=== PATIENT | female | born 1985 | race Asian ===

== ENCOUNTER 2018-05-04 16:58 | Emergency (ER) | payer OTHER, SELFPAY ==
[2018-05-04 16:59] VITALS: BP 126/76; PULSE 107; RESP 18; TEMP 37.6; O2SAT 98; BMI 19.0
--- NOTE | 2018-05-04 18:35 | ED.RN ---
NO OLD EKGS IN MUSE
[2018-05-04 18:49] VITALS: PULSE 110; RESP 18; O2SAT 99
--- NOTE | 2018-05-04 18:52 | ED.VISSUMM ---
- ER Visit Summary Date of Service: 05/04/18 Chief Complaint: Chest pain History of Present Illness: The patient is a 32 F with no primary care physician. She reports she has chest pain began approximately 1 week ago. It is an intermittent pain that lasts a few minutes of time. She describes as cramping. Is 3 out of 10 at worst and she is pain-free currently. It is worsened by movement of her torso. There is no change with exertion or breathing. It is relieved by relaxing. She denies any associated nausea, vomiting, diaphoresis, or shortness of breath. No personal family history of DVT. She did fly to [employer] in January. She denies any calf pain or ankle swelling. Physical Examination: Vitals: Stable. Afebrile. General: Well-nourished and well-developed. Head: Normocephalic atraumatic. Neck: Supple, no lymphadenopathy. No JVD. Nontender. Cardiovascular: Regular rate and rhythm. No murmurs. Respiratory: No respiratory distress. Clear to auscultation bilaterally. Abdominal: Soft, nontender, nondistended, normal bowel sounds. No guarding, rebound, or peritoneal signs. Back: Nontender. Extremities: Nontender, no edema. Skin: Normal color, no rash. Neurologic: Alert and oriented ?3. Cranial nerves II through XII are intact. Normal strength and sensation. Psych: Normal affect. Test Results: CBC is more for segment neutrophils fills of 79 lymphocytes of 17. Chem-7 with potassium 3.4. Troponin is negative. D-dimer is 2.53. test is negative. EKG is sinus at [address] changes. Chest x-ray shows no acute disease. CT of the chest shows no PE or dissection. Emergency Department Course and Treatment: Patient's resting comfortably without complaint. Treatment Plan: Patient be discharged instructions to follow-up with Dr. Helio Akhtar 3-5 days if not improving. Return to the emergency department for any worsening symptoms. Disposition: To home in improved and stable condition. Impression: 1. Atypical chest pain. 2. GURINDER score of 0. This note was generated with [employer] software. It may contain incorrect words, spelling, and punctuation that were not noted in review of the chart prior to signing ED Disposition - Plan for ED Patient: Disposition: Home or Assisted Living Chief Complaint: Chest Pain Instructions: ED Chest Pain Atypical Unkn Cause Referrals: Helio Akhtar MD [STAFF PHYSICIAN] - 1 Week if not improving
[2018-05-04] MEDS: 0.9% Normal Saline 1,000 ML 1000 ML IV (18:55)
[2018-05-04 18:57] VITALS: O2SAT 99
[2018-05-04 19:01] LABS: Absolute Lymphocyte Count 1.58 X10^3/ul (0.83-4.51); Absolute Neutrophil Count 7.2 X10^3/uL (2.0-7.7); Basophil# 0.02 X10^3/uL; Basophil% 0.2 % (0-1); Eosinophil# 0.01 X10^3/uL; Eosinophils% 0.1 % (0-5); Hematocrit 41.8 % (37-47); Hemoglobin 13.8 g/dl (12.0-15.0); Lymphocyte # 1.58 X10^3/ul (4.0); Lymphocyte % 17.2 % (19-41); Mean Corpuscular Hgb 31.9 pg (27.0-32.0); Mean Corpuscular Volume 96.5 fL (81-99); Mean Platelet Vol. 9.3 fl (6.2-12.0); Monocyte# 0.35 X10^3/uL; Monocyte% 3.8 % (0-10); Neutrophil # 7.24 X10^3/uL (2.7-7.7); Neutrophil % 78.6 % (47-70); POSITIVE COUNT NO; POSITIVE DIFFERENTIAL NO; POSITIVE MORPHOLOGY NO; Platelet Count 226 K/mm3 (150-450); RBC Distribution Width CV 12.5 % (11.6-14.6); Red Blood Count 4.33 M/mm3 (4.2-5.4); White Blood Count 9.2 K/mm3 (4.4-11.0)
[2018-05-04 19:15] LABS: D-Dimer Quantitative (DVT/PE) 2.53 FEU/ug/m (0.27-0.49)
[2018-05-04 19:17] LABS: Anion Gap 11 (5-15); BUN 10 mg/dL (7-18); BUN/Creat Ratio 12.4 RATIO (10-20); Calcium,Total 9.3 mg/dL (8.5-10.1); Chloride 104 mmol/L (98-107); Creatinine, Serum 0.81 mg/dL (0.55-1.02); EST Glomerular Filtration Rate 88 mL/min (>60); Est Glom Filt Rate - Afr Amer 106 mL/min (>60); Estimated Creatinine Clearance 78.08 ml/min; Glucose 106 mg/dL (74-106); Potassium 3.4 mmol/L (3.5-5.1); Sodium Level 139 mmol/L (136-145)
--- NOTE | 2018-05-04 19:18 | ED.RN ---
DDIMER 2.[address] [facility] DR OROURKE AWARE
[2018-05-04 19:36] LABS: Pregnancy, Serum, hCG Quali. NEGATIVE Negative (0-9 Nonpreg)
[2018-05-04 20:00] VITALS: PULSE 85; RESP 16; O2SAT 98
[2018-05-04 21:07] VITALS: PULSE 66; RESP 16; O2SAT 100
== END 2018-05-04 21:08 | disposition home or self-care (01) ==
LOC: ED 19:09
PROVIDERS: Emergency Provider Emergency Medicine
DX: R07.89 Other chest pain (principal)
CPT/HCPCS: 71045; 71275; 80048; 84484; 84703; 85025; 85379; 93005; 96360; 96361; 99284; J7030; Q9967; A4216